=== PATIENT | female | born 1985 ===

== ENCOUNTER → 2016-11-02 | Outpatient (CLI) | payer OTHER ==
[~2016-11-02] MED LIST: CYCL-259 PO; NPR500 PO
--- NOTE | 2016-11-02 14:32 | MAMMOGRAPHY REPORT ---
ULTRASOUND OF RIGHT BREAST: 11/02/2016 CLINICAL HISTORY: 30 year-old woman reported a dime-sized palpable lump in the upper inner quadrant o f the right breast that she noted one and half months ago. No skin changes, nipple discharge or foca l pain. No family history of breast cancer. COMPARISON: No prior exams were available for comparison. FINDINGS: Targeted ultrasound was performed in the area of palpable lump pointed out by the patient ( 2:00 right breast, 2 cm from the nipple). On palpation, there is a mobile firm 1 cm mass. On ultras ound, there is an oval parallel circumscribed hypoechoic solid mass measuring 11.5 x 7.2 x 14.0 mm. This most likely represents a benign fibroadenoma, but definitive characterization with tissue sampli ng is recommended to exclude the possibility of phyllodes. IMPRESSION: ACR BI-RADS CATEGORY 4A: LOW SUSPICION FOR MALIGNANCY - FOLLOW-UP RECOMMENDED The palpable lump in the 2:00 right breast correlates with a 14 mm circumscribed parallel solid mass on ultrasound, most likely representing a benign fibroadenoma. Definitive characterization with an u ltrasound-guided core needle biopsy is recommended to exclude the possibility of phyllodes. These results and recommendations were discussed with the patient at the time of the exam. She quest ioned the possibility of mammography and I explained to her that standard of care is to perform mammo graphy over the age of 30, or a strong family history of premenopausal breast cancer, or if the sonog raphic findings are suspicious. Given that these sonographic findings are probably benign I do not t hink it is necessary to perform mammography. However, she can discuss this with her physician and I would be willing to perform a unilateral mammogram after the procedure for assessment of the right br east, but also to ensure deployment of the biopsy marker clip and exclude the possibility of postbiop sy hematoma. We can discuss this further at the time of her biopsy. Keturah Hicks M.D. ay/:11/02/2016 10:22:16 Career Manager: Bing MORSE)(Caterina), [facility] letter sent: Abnormal 4/5 BI-RADS Code: ACR BI-RADS Category 4A: Low Suspicion For Malignancy
== END | disposition home or self-care (01) ==
LOC: C.MAMM 09:43
PROVIDERS: ATTEND Obstetrics & Gynecology
DX: N63 Unspecified lump in breast (principal)

== ENCOUNTER → 2016-11-09 | Outpatient (CLI) | payer OTHER ==
--- NOTE | 2016-11-09 11:42 | Discharge Instructions ---
Discharge Instructions Procedure Procedure Date: Nov 09, 2016. Reason for visit: Right Mass. Discharge Discharge Date: Nov 09, 2016. Discharge Diagnosis: post right breast ultrasound guided core biopsy Instructions Activity Recommendations: Additional Limitations (see below) Return to School/Work: no limitations Recommended Home Diet: No Limitations Provider Instructions: ACTIVITY RECOMMENDATIONS: * No lifting, pushing, pulling or exercising the affected side for three days. RETURN TO SCHOOL/WORK: * You may return to work/school after the procedure, but do not perform any strenuous activities for 24 to 48 hours. MEDICATIONS: * Tylenol (two 325 mg) every four to six hours if needed for mild pain (if not allergic to Tylenol). DIET: * Resume previous diet. SPECIAL CARE INSTRUCTIONS: * Keep biopsy site dry for 24 hours. May shower after 24 hours, but do not soak (bathe) incision. * May remove Tegaderm (plastic patch) tomorrow AFTER showering. * Leave the steri-strips on for one week. Allow the steri-strips to fall off by themselves. If not off after one week, you may remove them. You may place a Bandaid crosswise over the strips, if desired. * Apply ice 10 minutes on and 10 minutes off as needed. * Wear a bra at bedtime to sleep more comfortably for 2-3 days. * Your referring physician should have the results after approximately 5 to 7 business days. * Call for unusual bleeding, fever, drainage, etc or if you have any questions call [phone] during normal business hours or after hours call Dr Hicks, . FOLLOW UP VISIT: Follow-up with Referring Physician as scheduled. Allergies Coded Allergies: Penicillins (Verified Allergy, ., 08/10/11) Maynor John Recommendations: Call your doctor if: * Temperature above 101 degrees * Pain not relieved by pain medicine ordered * There is increased drainage or redness from any incision * You have any unanswered questions or concerns. Your Doctors Instructions noted above were prepared by provider Keturah Hicks. Patient Signature Section: Patient Instructions Signature Page Ivelisse Ochoaramiro Patient (or Guardian) Signature/Date: I have read and understand the instructions given to me by my caregivers. Caregiver/RN/Doctor Signature/Date: The above-named patient and/or guardian has received patient instructions on this date. + Original Patient Signature Page (only) stays with chart. Please make copy for patient.
--- NOTE | 2016-11-09 15:23 | MAMMOGRAPHY REPORT ---
ULTRASOUND GUIDED BIOPSY RIGHT BREAST: 11/09/2016 CLINICAL HISTORY: Patient presents for ultrasound-guided core biopsy of an indeterminate solid palpab le 14 mm mass in the 2:00 right breast. No strong family history of breast cancer. COMPARISON: Comparison is made to exam dated: 11/02/2016 ultrasound - . PATIENT CONSENT: The procedure, risks and benefits were discussed with the patient and informed conse nt was obtained both verbally and in writing. Specific risks to this procedure include: bleeding, in fection, puncture of adjacent structure, nontarget biopsy, sampling error, pain, metal allergy and me dication reaction. PROCEDURE DESCRIPTION: A time out was performed and the right breast was agreed as the site of biopsy . The skin was prepped and draped in the usual sterile fashion. The solid palpable 14 mm mass in the 2:00 right breast was chosen as the target for biopsy. Subcutaneous and intraparenchymal 1% buffered lidocaine, with and without epinephrine, was administered as local anesthesia. A skin incision was ma de. Through the incision, 3 samples were taken with a 14 gauge Achieve biopsy device. A ribbon shape d metallic marker was placed at the biopsy site. Hemostasis was achieved after manual compression. Th e patient tolerated the procedure well and there was no immediate complication. The samples were sen t to the pathology department in an appropriately labeled container. After discussion with the patient's, post procedure mammography was deferred given her age less than 30, no strong family history of breast cancer, and the benign sonographic features of the biopsied ma ss. IMPRESSION: ULTRASOUND GUIDED BIOPSY Status post ultrasound guided core biopsy of an indeterminate solid palpable mass in the 2:00 right b reast, with biopsy marker placed at the site. The patient will receive notification of the biopsy results from her referring physician. Keturah Hicks M.D. ay/:11/09/2016 11:50:53 Sleever: Desiree MORSE)(Caterina),
== END | disposition home or self-care (01) ==
LOC: C.MAMM 11:13
PROVIDERS: ATTEND Obstetrics & Gynecology
DX: N63 Unspecified lump in breast (principal)